=== PATIENT | female | born 1970 | race Caucasian/White ===

== ENCOUNTER 2019-11-25 16:58 | Outpatient (CLI) | payer BC, SELFPAY ==
[2019-11-25 17:31] LABS: Basophils Absolute Auto 0.1 K/mm3 (0.0-0.1); Basophils Percent Auto 1.1 % (0.2-1.2); Eosinophils Absolute Auto 0.2 K/mm3 (0-0.3); Eosinophils Percent Auto 1.5 % (0-4.4); Hematocrit 40.1 % (37.0-47.0); Hemoglobin 13.4 g/dL (12.0-15.0); Immature Granulocyte Absolute 0.05 K/mm3 (0.00-0.031); Immature Granulocyte Percent A 0.4 % (0-0.5); Lymphocytes Percent Auto 20.9 % (18.3-44.2); Mean Corpuscular HGB Conc 33.4 g/dl (32-36); Mean Corpuscular Hemoglobin 30.4 pg (26-34); Mean Corpuscular Volume 90.9 fl (80-100); Mean Platelet Volume 11.5 fl (7.4-10.4); Monocytes Absolute Auto 0.9 K/mm3 (0.1-0.6); Monocytes Percent Auto 7.2 % (2.6-8.5); Neutrophils Absolute Auto 8.9 K/mm3 (1.3-6.7); Neutrophils Percent Auto 68.9 % (45.5-73.1); Platelet Count Result 351 k/mm3 (150-375); Red Blood Count 4.41 M/mm3 (4.2-5.4); Red Cell Distribution Width 12.5 % (11.5-14.5); White Blood Count 12.9 K/mm3 (4.5-10.0)
[2019-11-25 17:44] LABS: Alanine Aminotransferase 20 U/L (4-35); Albumin Level 4.4 g/dL (3.5-5.1); Alkaline Phosphatase 83 U/L (38-126); Amylase 93 U/L (30-110); Aspartate Amino Transferase 22 U/L (14-36); Bilirubin,Total 0.2 mg/dL (0.2-1.3); Blood Urea Nitrogen 12 mg/dL (7-17); Calcium 9.1 mg/dL (8.4-10.2); Carbon Dioxide 20 mmol/L (22-30); Chloride 110 mmol/L (98-107); Estimated Glomerular Filt Rate > 60; Glucose 89 mg/dL (65-105); Lipase 118 U/L (23-300); Potassium 4.2 mmol/L (3.4-5.0); Sodium 139 mmol/L (137-145)
== END 2019-11-25 16:59 | disposition home or self-care (01) ==
PROVIDERS: PCP Family Medicine; Visit Provider Physician Assistant
DX: R10.9 Unspecified abdominal pain (principal); R11.10 Vomiting, unspecified; R19.7 Diarrhea, unspecified
CPT/HCPCS: 36415; 80053; 82150; 83690; 85025

== ENCOUNTER 2019-12-01 12:14 | Outpatient (CLI) | payer BC, SELFPAY ==
[2019-12-01 12:40] LABS: Basophils Absolute Auto 0.1 K/mm3 (0.0-0.1); Basophils Percent Auto 0.7 % (0.2-1.2); Eosinophils Absolute Auto 0.2 K/mm3 (0-0.3); Eosinophils Percent Auto 1.8 % (0-4.4); Hematocrit 40.1 % (37.0-47.0); Hemoglobin 13.3 g/dL (12.0-15.0); Immature Granulocyte Absolute 0.03 K/mm3 (0.00-0.031); Immature Granulocyte Percent A 0.3 % (0-0.5); Lymphocytes Absolute Auto 1.78 K/mm3 (0.9-3.2); Lymphocytes Percent Auto 18.3 % (18.3-44.2); Mean Corpuscular HGB Conc 33.2 g/dl (32-36); Mean Corpuscular Hemoglobin 30.2 pg (26-34); Mean Corpuscular Volume 91.1 fl (80-100); Monocytes Absolute Auto 0.7 K/mm3 (0.1-0.6); Monocytes Percent Auto 7.3 % (2.6-8.5); Neutrophils Percent Auto 71.6 % (45.5-73.1); Platelet Count Result 324 k/mm3 (150-375); Red Cell Distribution Width 12.6 % (11.5-14.5); White Blood Count 9.7 K/mm3 (4.5-10.0)
== END 2019-12-01 12:15 | disposition home or self-care (01) ==
PROVIDERS: PCP Family Medicine; Visit Provider Physician Assistant
DX: R19.7 Diarrhea, unspecified (principal); D72.829 Elevated white blood cell count, unspecified
CPT/HCPCS: 36415; 85025

== ENCOUNTER 2019-12-03 16:30 | Outpatient (CLI) | payer BC, SELFPAY ==
--- NOTE | ~2019-12-03 | US_ITS ---
EXAMINATION: US abdomen complete EXAM DATE: 12/03/2019 17:11 INDICATION: Epigastric pain and vomiting. TECHNIQUE: Multiple grayscale and Doppler images of the complete abdomen were obtained (by a technolo gist who performed the scan) and subsequently reviewed. Correlation is made to renal ultrasound 2016. FINDINGS: The abdominal aorta is normal in caliber. Visualized portion IVC is patent. The pancreatic head a nd body are normal in appearance. The pancreatic tail is not visualized. The liver has normal echogenicity and contour. There are no focal liver lesions identified. There is no evidence of intrahepatic biliary duct dilation. Portal venous flow was seen in the hepatopedal , normal direction and has normal Doppler waveform. Common bile duct measures 4 mm, which is normal. The gallbladder wall is normal in thickness, with ex pected amount of distention. No sonographic evidence of pericholecystic fluid. There is cholelithia sis. Technologist performing exam reports patient did not demonstrate sonographic Banegas's sign. P jeremi note that this sign is less reliable in patients who have received pain medication. Right kidney: There is normal contour and echogenicity. It measures 13.7 x 6.7 x 6.4 centimeters. There are no focal renal lesions identified. There is no hydronephrosis. Left kidney: In expected location of the left kidney there is region which could be a severely atroph ic kidney measuring 4.2 x 2.2 x 2.7 cm. On previous examination left kidney was identified measuring 7.3 x 3.6 x 3.8 cm. The spleen measures 9 centimeters and is morphologically normal. IMPRESSION: 1. Severe left renal atrophy. 2. Cholelithiasis. Reviewed, dictated and finalized at location A.
== END 2019-12-03 16:31 | disposition home or self-care (01) ==
PROVIDERS: PCP Family Medicine; Visit Provider Physician Assistant
DX: R11.10 Vomiting, unspecified (principal); R10.9 Unspecified abdominal pain; R19.7 Diarrhea, unspecified; N26.1 Atrophy of kidney (terminal); K80.20 Calculus of gallbladder without cholecystitis without obstruction
CPT/HCPCS: 76700

== ENCOUNTER → 2020-12-03 16:36 | Outpatient (CLI) | payer BC, SELFPAY ==
--- NOTE | ~2020-12-03 | MM_ITS ---
EXAMINATION: MM screening mario BI w fidencio HISTORY: Screening mammogram TECHNIQUE: Craniocaudal and mediolateral oblique 3-D tomosynthesis images were obtained and synthetic 2-D images were generated. CAD analysis was submitted and interpreted. COMPARISON: , 05/22/2017, 04/20/2016 bilateral digital screening mammogram examinations BREAST PARENCHYMAL COMPOSITION: There are scattered areas of fibroglandular density. FINDINGS: There is no evidence of suspicious mass, calcification, or architectural distortion to sugg est malignancy in either breast. There has been no suspicious interval change. IMPRESSION: 1. No mammographic evidence of malignancy. 2. Recommend routine screening mammography in one year. BI-RADS Category 1: Negative Reviewed, dictated and finalized at location A.
== END ==
PROVIDERS: Visit Provider Nurse Practitioner
DX: Z12.31 Encounter for screening mammogram for malignant neoplasm of breast (principal)
CPT/HCPCS: 77063; 77067

== ENCOUNTER → 2020-12-04 09:20 | Outpatient (CLI) | payer BC, SELFPAY ==
--- NOTE | ~2020-12-04 | MR_ITS ---
EXAMINATION: MR knee RT wo con DATE: 12/04/2020 10:10 INDICATION: Right knee pain. TECHNIQUE: Magnetic resonance imaging (MRI) of the right knee was performed without intravenous contr ast. Sequences included axial PD-weighted FS FSE, coronal PD-weighted FSE and PD-weighted FS FSE, sag ittal PD-weighted FSE, and sagittal T2-weighted FS FSE. COMPARISON: Right knee radiographs 11/18/2020 FINDINGS: Medial compartment: Medial meniscus is normal. There is cartilage surface irregularity of tibial condyle. There is shallo w partial-thickness cartilage loss of femoral condyle medially. Marginal osteophytes are noted. Lateral compartment: There is a complex tear of anterior horn, body, and posterior horn of lateral meniscus. There is exte nsive deep partial thickness cartilage loss of tibial condyle with mild subchondral edema-like marrow signal intensity. There is full-thickness cartilage loss of tibial condyle medially. There is full-t hickness cartilage loss of femoral condyle involving the central and posterior articular surface with mild subchondral edema-like marrow signal intensity. Marginal osteophytes are noted. Patellofemoral compartment: Patellar cartilage is normal. There is shallow partial-thickness cartilage loss involving central and lateral trochlea. There are tiny marginal osteophytes. Ligaments and tendons: The anterior and posterior cruciate ligaments are normal. Medial collateral ligament is normal. There are changes of prior sprain of fibular collateral ligament characterized by thickening and increased signal intensity. There is mild patellar tendinopathy. Fluid: There is a moderate-sized knee joint effusion. There is trace fluid in a Yoon's cyst. There is mild prepatellar and superficial infrapatellar bursitis. IMPRESSION: 1. Severe chondrosis of lateral compartment and mild chondrosis of medial and patellofemoral compartm ents. 2. Complex tear of lateral meniscus. 3. Moderate-sized knee joint effusion. Reviewed, dictated and finalized at location A. IMPRESSION: 1. Severe chondrosis of lateral compartment and mild chondrosis of medial and p atellofemoral compartments. 2. Complex tear of lateral meniscus. 3. Moderate-sized knee joint effusion.
== END ==
PROVIDERS: Visit Provider Nurse Practitioner Family
DX: M25.561 Pain in right knee (principal); M22.2X1 Patellofemoral disorders, right knee; S83.271A Complex tear of lateral meniscus, current injury, right knee, initial encounter; M25.461 Effusion, right knee
CPT/HCPCS: 73721

== ENCOUNTER → 2021-03-26 10:25 | Outpatient (CLI) | payer BC, SELFPAY ==
--- NOTE | ~2021-03-26 | US_ITS ---
EXAMINATION: US pelvic complete DATE: 03/26/2021 10:45 INDICATION: Abnormal uterine bleeding TECHNIQUE: Multiple transabdominal sonographic images of the pelvis were obtained. COMPARISON: None. FINDINGS: The uterus measures 9.4 x 3.2 x 4.0 cm. The endometrial complex measures 3 mm in thickness. The righ t ovary measures 2.4 x 1.3 x 2.1 cm. The left ovary measures 2.5 x 1.5 x 2.8 cm. Vascular flow identi fied in both ovaries on color Doppler. There is no free fluid in the pelvis. IMPRESSION: 1. Normal pelvic ultrasound. Reviewed, dictated and finalized at location A.
== END ==
PROVIDERS: Visit Provider Nurse Practitioner
DX: N93.8 Other specified abnormal uterine and vaginal bleeding (principal)
CPT/HCPCS: 76856

== ENCOUNTER → 2023-07-17 14:59 | Outpatient (CLI) | payer BC, SELFPAY ==
--- NOTE | ~2023-07-17 | MM_ITS ---
EXAMINATION: MM screening mario BI w fidencio HISTORY: Screening TECHNIQUE: Craniocaudal and mediolateral oblique 3-D tomosynthesis images were obtained and synthetic 2-D images were generated. CAD analysis was submitted and interpreted. COMPARISON: No prior mammogram is available for comparison at this institution. BREAST PARENCHYMAL COMPOSITION: There are scattered areas of fibroglandular density. FINDINGS: There is no evidence of suspicious mass, calcification, or architectural distortion to sugg est malignancy in either breast. There has been no suspicious interval change. IMPRESSION: 1. No mammographic evidence of malignancy. 2. Recommend routine screening mammography in one year. BI-RADS Category 1: Negative Reviewed, dictated and finalized at location A. [employer]
== END ==
PROVIDERS: PCP Nurse Practitioner; Visit Provider Nurse Practitioner
DX: Z12.31 Encounter for screening mammogram for malignant neoplasm of breast (principal)
CPT/HCPCS: 77063; 77067

== ENCOUNTER 2024-02-29 13:38 | Outpatient (CLI) | payer BC, SELFPAY ==
[2024-02-29 13:52] LABS: Basophils Absolute Auto 0.1 K/mm3 (0.0-0.1); Basophils Percent Auto 0.8 % (0.2-1.2); Eosinophils Absolute Auto 0.2 K/mm3 (0-0.3); Eosinophils Percent Auto 1.5 % (0-4.4); Hematocrit 42.6 % (37.0-47.0); Hemoglobin 14.2 g/dL (12.0-15.0); Immature Granulocyte Absolute 0.03 K/mm3 (0.00-0.031); Immature Granulocyte Percent A 0.3 % (0-0.5); Lymphocytes Absolute Auto 2.44 K/mm3 (0.9-3.2); Lymphocytes Percent Auto 23.3 % (18.3-44.2); Mean Corpuscular HGB Conc 33.3 g/dl (32-36); Mean Corpuscular Hemoglobin 30.4 pg (26-34); Mean Corpuscular Volume 91.2 fl (80-100); Monocytes Absolute Auto 0.8 K/mm3 (0.1-0.6); Monocytes Percent Auto 7.1 % (2.6-8.5); Platelet Count Result 331 k/mm3 (150-375); Red Blood Count 4.67 M/mm3 (4.2-5.4); Red Cell Distribution Width 12.2 % (11.5-14.5); White Blood Count 10.5 K/mm3 (4.5-10.0)
--- NOTE | 2024-02-29 13:52 | ECG_ITS ---
Test Date: 2024-02-29 13:57:57 Measurements Intervals Chase Rate: 84 P: 58 MS: 148 QRS: 0 QRSD: 91 T: 7 QT: 348 QTc: 412 Interpretive Statements SINUS RHYTHM WITH SINUS ARRHYTHMIA No previous ECG available for comparison Electronically Signed On 03-01-2024 14:28:10 CDT by Dion Galindo M.D.
[2024-02-29 14:01] LABS: Add Urine Microscopic? NO; Appearance Urine Clear (Clear); Bilirubin Urine Negative (Negative); Blood Urine Negative (Negative); Color Urine Yellow (Yellow); Glucose Urine UA Negative (Negative); Ketones Urine Negative (Negative); Leukocyte Esterase Ur Negative LEU/UL (Negative); Nitrate Urine Negative (Negative); Protein Urine Negative (Negative); Specific Grav Ur 1.034 (1.001-1.035)
[2024-02-29 14:04] LABS: Anion Gap 11 mmol/L (4-12); Blood Urea Nitrogen 19 mg/dL (7-17); Calcium 9.5 mg/dL (8.4-10.2); Carbon Dioxide 22 mmol/L (22-30); Chloride 106 mmol/L (98-107); Estimated Glomerular Filt Rate > 60; Glucose 99 mg/dL (65-110); Potassium 4.3 mmol/L (3.4-5.0); Sodium 139 mmol/L (137-145)
== END 2024-02-29 13:39 | disposition home or self-care (01) ==
LOC: ANHLAB 13:41
PROVIDERS: PCP Family Medicine; Visit Provider Nurse Practitioner Family
DX: K80.20 Calculus of gallbladder without cholecystitis without obstruction (principal); I49.8 Other specified cardiac arrhythmias; K21.9 Gastro-esophageal reflux disease without esophagitis; I10 Essential (primary) hypertension; E78.5 Hyperlipidemia, unspecified; R53.83 Other fatigue
CPT/HCPCS: 36415; 80048; 81003; 85025; 93005

== ENCOUNTER 2024-04-01 13:59 | Outpatient (CLI) | payer BC, SELFPAY ==
[2024-04-01 15:33] LABS: Albumin Level 4.2 g/dL (3.5-5.1)
[2024-04-01 15:35] LABS: Prothrombin Time 13.7 Seconds (11.1-14.7)
[2024-04-01 15:36] LABS: Partial Thromboplastin Time 30.4 Seconds (22.3-36.8)
[2024-04-01 15:49] LABS: Hemoglobin A1C 5.3 % (<5.7)
[2024-04-01 16:48] LABS: Urine Cotinine NEGATIVE
[2024-04-01 17:20] LABS: MRSA (PCR) DETECTED (NOT DETECTE)
== END 2024-04-01 14:00 | disposition home or self-care (01) ==
LOC: ANHSURGERY 14:05
PROVIDERS: PCP Family Medicine; Visit Provider Orthopaedic Surgery
DX: Z01.812 Encounter for preprocedural laboratory examination (principal); M17.11 Unilateral primary osteoarthritis, right knee
CPT/HCPCS: 80307; 82040; 83036; 85610; 85730; 87641

== ENCOUNTER 2024-04-15 00:35 | Day surgery (SDC) | payer BC, SELFPAY ==
--- NOTE | 2024-04-01 13:53 | PC.NURSE ---
Addendum entered by Yue Harrell RN 04/01/24 14:50: HOLD IBUPROFEN(NSAIDS 7 DAYS PRE-OP PER DR MACEDO- LAST DOSE 04/07/24. PT RELAYS UNDERSTANDING. Original Note: Report to the Outpatient Waiting Room, entrance under the green pavilion located off [facility], at time ___8:30AM____ on date ____04/15/24___. Planned Procedure Time: ____10:30AM____.? Time changes happen often and if your time is changed the preop area will call you the afternoon before. - You and your visitor will be asked to self-screen and do not enter if you have any COVID symptoms. Please call surgeon if you need to reschedule. - A mask is optional within the hospital at this time. Patients may have clear liquids (water, carbonated beverages, clear teas, apple juice) until 3 hours prior to surgery with a maximum of 20 ounces. - No food from midnight until time of surgery and no smoking. Take only the following medications with a SIP of water on the morning of surgery: ___BUSPIRONE. MAY TAKE ALPRAZOLAM NEEDED DO NOT STOP ANY OF YOUR OTHER PRESCRIPTION MEDICATIONS PRIOR TO SURGERY EXCEPT THE FOLLOWING Medications to discontinue per physician HOLD WEGOVY 10 DAYS PRE-OP PER ANESTHESIA Date to take last dose 04/04/24 Please no make-up, nail cypriot, hairspray, perfume, deodorant, or body powder the day of surgery.? No jewelry (including any body piercings) or valuables the day of surgery, leave them at home.? Please take a shower or bath the night before, or the morning of, surgery with an antibacterial soap.? Wear comfortable, loose fitting clothing.? - Jewelry must be removed prior to entering the operating room.? Rings and piercings that are not removed may be cut off. - The hospital will not accept responsibility for valuables.? - Please leave all valuables, including medications, at home the day of surgery. If you are going home after surgery, a licensed tour bus driver/guide must drive you home.? - NO public transportation without another adult if you receive anesthesia. - We recommend that an adult stay with you for 24 hours following discharge. - We also recommend that you do not drive, make important decision, drink alcoholic beverages, or take any drugs that were not prescribed by your health care provider for at least 24 hours after your discharge time. Follow any additional instructions given to you from your surgeon. [facility] Telephone instructions given to PATIENT Patient advised to call surgeon office or pre surgery nurse liaison [phone] if any additional questions.
[2024-04-01 14:18] VITALS: BP 137/71; PULSE 84; RESP 16; TEMP 36.5; O2SAT 99; BMI 37.7
--- NOTE | 2024-04-14 13:52 | WPDANESEPPF ---
Anes - Initial Pre Proc Eval Procedure: Operation Date: 04/15/24 10:30 Proposed Procedures p Right Total Knee Arthroplasty - Ander Sethi MD Date/Time: 04/14/24 13:52 Surgeon: Ander Sethi MD Pre Op Diagnosis: right knee OA Patient Data Age: 54 Gender: F Height: 1.66 m Weight: 103.7 kg Last Vital Signs Temp 36.5 C 04/01/24 14:18 Pulse 84 04/01/24 14:18 Resp 16 04/01/24 14:18 BP 137/71 04/01/24 14:18 Pulse Ox 99 04/01/24 14:18 O2 Del Method Room Air 04/01/24 14:18 Allergies Allergy/AdvReac Type Severity Reaction Status Date / Time No Known Allergies Allergy Verified 04/15/24 08:51 Home Medications Medication Instructions Recorded Confirmed Type escitalopram oxalate 5 mg tablet 5 mg PO DAILY #90 tabs 12/06/21 04/15/24 Rx semaglutide (weight loss) 2.4 2.4 mg (0.75 mL) subcut WEEKLY #9 08/15/23 04/15/24 Rx mg/0.75 mL subcutaneous pen mL injector omeprazole 40 mg capsule,delayed 40 mg PO DAILY #90 caps 11/14/23 04/15/24 Rx release losartan 100 mg tablet 100 mg PO DAILY #90 tabs 11/28/23 04/15/24 Rx alprazolam 0.25 mg tablet 0.25 mg PO DAILY PRN anxiety #30 02/22/24 04/15/24 Rx tabs buspirone 10 mg tablet 10 mg PO BID 02/22/24 04/15/24 History Lactobacillus acidophilus 10 10,000 mmu cells PO ONCE 04/01/24 04/15/24 History billion cell capsule (Probiotic) chlorhexidine gluconate 4 % 1 applic topical ONCE #237 mL 04/01/24 04/15/24 Rx topical liquid (Hibiclens) ibuprofen 200 mg tablet (Advil) 400 mg PO Q6H PRN Pain 04/01/24 04/15/24 History norethindrone 1 mg-ethinyl 1 tablet PO HS 04/01/24 04/15/24 History estradiol 35 mcg tablet (Nortrel) Patient hx anesthesia problems: post op nausea/vomiting Family hx anesthesia problems: none Results Review: All pre-operative results and documents have been reviewed as part of the pre-operative evaluation. [facility] Past Medical History Medical History (Updated 04/14/24 @ 13:52 by Ang Ventura DO) BMI greater than 40 Chondromalacia, right knee Claustrophobia Degenerative joint disease of knee Depression GERD (gastroesophageal reflux disease) History of diverticulitis HTN (hypertension) Impingement syndrome involving patellar fat pad Lateral meniscus tear Left renal atrophy Medial meniscus tear Other fatigue Right knee DJD Right knee pain Surgical History Surgical History History of bunionectomy 2009 Family History Family History Father Hypertension Mother Hypertension Sibling Hypertension Other Depression Heart disease Social History Social History Social History: Smoking status: Never smoker Second hand tobacco smoke exposure: No Alcohol intake: current Substance use: never Substance use type: does not use Living arrangements: with family Additional living arrangements comments: SPOUSE AND CHILD Occupation/Education: occupation Gender identity (if verbalized by the patient): Female Sexual Orientation (if Verbalized by the Patient): Straight or Heterosexual Spiritual care concerns: No Anes - Eval Final PreProcedure Day of Procedure 04/14/24 13:52 Patient weight: obese Heart: regular rate and rhythm Lungs: clear to auscultation Airway: Mallampati scale class II Neurological: alert and oriented Last oral intake: >/= 8 hours ASA classification: III Emergent: no Anesthetic plan: proceed Anesthesia type and monitoring: general LMA and standard monitoring Results Review: All pre-operative results and documents have been reviewed as part of the pre-operative evaluation. Informed Consent: The patient's anesthetic plan and its attendant risks and benefits were discussed with the patient/family/POA. Questions were solicited and answers provided to the satisfaction
[2024-04-15] VITALS (20 sets, daily range): BP systolic 137–180; BP diastolic 78–109; PULSE 68–103; RESP 15–24; TEMP 36.3–36.9; O2SAT 94–100
--- NOTE | ~2024-04-15 | XR_ITS ---
EXAMINATION: [id number] DATE: 04/15/2024 14:46 CDT INDICATION: Right knee arthroplasty TECHNIQUE: 2 views right knee FINDINGS: There is a right total knee arthroplasty in expected position. Subcutaneous gas with fluid and air in the joint and overlying skin sivakumar are consistent with recent surgery. No evidence of p eriprosthetic fracture. IMPRESSION: 1. Recent right total knee arthroplasty. Reviewed, dictated and finalized at location B.
--- NOTE | 2024-04-15 07:22 | WPDHPUPDATE1 ---
History and Physical Update Update Date/Time: 04/15/24 07:22 History and Physical has been reviewed, including an updated exam of the patient. There are NO changes in the patient's condition. Risks, benefits, and alternatives have been discussed and questions answered. Patient agrees to proceed with procedure.
[2024-04-15] MEDS: ACETAMINOPHEN 500 MG TABLET 1000 MG PO (09:16)
[2024-04-15] MEDS: LACTATED RINGERS 1,000 ML 30 ML IV CONT ×2 (09:27→13:43)
[2024-04-15] MEDS: TRANEXAMIC ACID 1,000MG/ISO100 1,000 MG/100 ML BAG 200 MG IVPB (10:30)
[2024-04-15] MEDS: SCOPOLAMINE 1 MG PATCH 1 PATCH TRANSDERM (10:37)
[2024-04-15] MEDS: ceFAZolin 2 GM/D5W 50 ML 2 GM/50 ML BAG IVPB ×2 (11:41→17:50)
--- NOTE | 2024-04-15 12:04 | WPDANESPNB ---
Anes - Peripheral Nerve Block Date/Time: 04/15/24 12:04 I have discussed with the patient/family/POA the placement of a peripheral nerve block for post-operative pain management, including associated risks, benefits, complications, and side effects. Alternative methods of post-operative analgesia were detailed. Questions were solicited and answers provided to the satisfaction of the patient/family/POA. Time-Out: A pre-procedural Time-Out was completed immediately before starting the procedure and confirmed: Patient Identification, Site, Procedure, Patient Position and the Availability of Requisite Equipment. Clinical Indications: Acute post-operative pain management requested by the operative surgeon. Nerve Block Insertion Note Anes-nerve block: adductor canal right Patient position: supine Skin prep: chlorhexidine Needle: 22 gauge, stimulating, insulated echogenic needle. Needle length: 80 mm Technique: ultrasound Injectate: bupivacaine 0.5% with epi 5 mcg/ml (30cc - no epi) Observations: tolerated well Complications: none Procedure start time:: 1119 Procedure end time:: 1121
[2024-04-15] MEDS: SODIUM CHLORIDE 0.9% IV 37.7 ML, MORPHINE SULFATE INJ (*CRX) 2 MG, ROPivacaine HCL 1% 2... INFILTRATE (12:07)
--- NOTE | 2024-04-15 13:49 | W.PM.PROC2 ---
Procedure Note - Detailed Date of Procedure 04/15/24 Pre-op Diagnosis right knee OA Post-op Diagnosis Same Procedure Performed R TKA Surgeon Ander Sethi MD Anesthesia General Description of Procedure THE RIGHT KNEE WAS PREPPED AND DRAPED IN THE STERILE FASHION. A MIDLINE SKIN INCISION WAS MADE. A MEDIAL PARAPATELLAR ARTHROTOMY WAS MADE. THE PATELLA WAS EVERTED. THERE WAS TRICOMPARTMENT DJD. THERE WAS MINIMAL PATELLA DJD. AN INTRAMEDULLARY CHEO WAS PLACED IN THE FEMUR. A DISTAL FEMORAL CUT WAS MADE IN 5 DEGREES OF VALGUS REMOVING APPROXIMATELY 9 MM OF BONE FROM THE DISTAL FEMUR. THE FEMUR WAS SIZED TO 4. A 4 FEMORAL CUTTING BLOCK WAS PLACED IN 3 DEGREES OF EXTERNAL ROTATION AND IN ALIGNMENT WITH NOEMI'S LINE AND THE TRANSEPICONDYLAR AXIS. ANTERIOR POSTERIOR AND CHAMFER CUTS WERE MADE. THE CUTS WERE EXCELLENT. NEXT AN INTRAMEDULLARY CUTTING GUIDE WAS PLACED IN THE TIBIA. A TRANS TIBIAL CUT WAS MADE ALONG THE LONG AXIS OF THE TIBIA. APPROXIMATELY 10 MM OF BONE WAS REMOVED FROM THE HIGH SIDE OF THE TIBIA. THE TIBIA WAS THEN PLANED TO A SMOOTH SURFACE. POSTERIOR FEMORAL OSTEOPHYTES WERE REMOVED FROM THE FEMORAL CONDYLES. A 4 TIBIAL TRIAL WAS PLACED IN ALIGNMENT WITH THE 1/3 MEDIAL ASPECT OF THE TIBIAL TUBERCLE. THEN A 4 FEMORAL TRIAL COMPONENT WAS PLACED. BOTH HAD EXCELLENT FITS. EVENTUALLY A 10 MM CS POLYETHYLENE TRIAL COMPONENT WAS PLACED. THE KNEE WAS TAKEN THROUGH A RANGE OF MOTION. THE KNEE CAME OUT TO FULL EXTENSION. THERE WAS NO ABNORMAL TILT TO THE PATELLA. THERE WAS GOOD A/P AND VARUS/VALGUS STABILITY. THERE WAS NO EXCESSIVE ROLL BACK WITH FLEXION. THE TRIAL COMPONENTS WERE REMOVED. THEN A BENTON 4 FEMORAL COMPONENT AND 4 TIBIAL COMPONENT WITH A 10 CS POLYETHYLENE COMPONENT WERE PRESS FIT INTO PLACE. ONCE THE CEMENT WAS HARD THE KNEE WAS TAKEN THROUGH A ROM AGAIN AND FOUND TO BE STABLE WITH NO PATELLA TILT NO EXCESSIVE ROLL BACK WITH FLEXION AND GOOD STABILITY WITH COMPLETE AND FULL EXTENSION. THE KNEE WAS IRRIGATED WITH STERILE BETADINE AND WATER FOR ABOUT 3 MINUTES. THE BLEEDERS WERE CAUTERIZED. THE ARTHROTOMY WAS REPAIRED WITH NUMBER 1 VICRYL. THE SUB CUTANEOUS LAYER WITH 2-0 VICRYL AND THE SKIN WITH DEBORAH. THE WOUND WAS WASHED AND A STERILE DRESSING WAS APPLIED. PATIENT WAS EXTUBATED. Estimated Blood Loss -150.0 Pathology None sent Complications No immediate complications Condition Stable Disposition PACU
[2024-04-15] MEDS: diphenhydrAMINE HCl INJ 50 MG/ML VIAL 25 MG IV PUSH (14:19)
[2024-04-15] MEDS: fentaNYL CITRATE INJ (*CRX) 100 MCG/2 ML VIAL 25 MCG IV PUSH ×4 (15:02→15:19)
[2024-04-15] MEDS: LABETALOL HCL INJ 100 MG/20 ML VIAL IV PUSH (15:31)
--- NOTE | 2024-04-15 16:28 | ADMGEN ---
This patient, Kayce Mantilla, was admitted to [facility] Surg Room 302-01. Patient/family oriented to hospital policies and general routines including ID bracelet, bed and alarms, visiting hours, pain management, procedures, bathroom and other care routines, personal items, smoking policy, room service/diet, and visiting hours. Information on how to activate the Rapid Response Team has been discussed. Patient/Family are encouraged to report perceived risks to care and to ask questions if they do not understand what they are told or what they should do.
[2024-04-15] MEDS: KETOROLAC 15 MG/ML VIAL (*BKC) IV PUSH ×3 (16:37→23:41)
[2024-04-15] MEDS: SODIUM CHLORIDE 0.9% IV 1,000 ML 125 ML IV CONT (16:37)
[2024-04-15] MEDS: SENNA/DOCUSATE SODIUM TABLET 2 TAB PO (16:41)
[2024-04-15] MEDS: busPIRone HCL 10 MG TABLET PO (16:41)
[2024-04-15 17:00] LABS: Glucose Point of Care 126 mg/dl (65-105)
[2024-04-15] MEDS: oxyCODONE/ACETAMINOPHEN (*CRX) 5-325 MG TABLET 1 TABLET PO (17:51)
[2024-04-15] MEDS: diazePAM (*CRX) 5 MG TABLET PO (20:32)
[2024-04-15] MEDS: ASPIRIN 325 MG ENTERIC TABLET PO (20:32)
[2024-04-16] MEDS: ceFAZolin 2 GM/D5W 50 ML 2 GM/50 ML BAG IVPB ×2 (01:24→11:06)
[2024-04-16 01:26] VITALS: BP 117/61; PULSE 84; RESP 20; TEMP 36.1; O2SAT 100
[2024-04-16] MEDS: KETOROLAC 15 MG/ML VIAL (*BKC) IV PUSH ×2 (05:04→12:06)
[2024-04-16 05:48] VITALS: BP 143/81; PULSE 110; RESP 22; TEMP 36.3; O2SAT 99
[2024-04-16] MEDS: oxyCODONE/ACETAMINOPHEN (*CRX) 5-325 MG TABLET 1 TABLET PO ×2 (05:49→16:25)
[2024-04-16 06:23] LABS: Hematocrit 34.7 % (37.0-47.0); Hemoglobin 11.4 g/dL (12.0-15.0); Mean Corpuscular HGB Conc 32.9 g/dl (32-36); Mean Corpuscular Hemoglobin 30.5 pg (26-34); Mean Corpuscular Volume 92.8 fl (80-100); Mean Platelet Volume 11.6 fl (7.4-10.4); Platelet Count Result 343 k/mm3 (150-375); Red Blood Count 3.74 M/mm3 (4.2-5.4); Red Cell Distribution Width 12.7 % (11.5-14.5); White Blood Count 22.1 K/mm3 (4.5-10.0)
[2024-04-16 06:38] LABS: Anion Gap 10 mmol/L (4-12); Blood Urea Nitrogen 12 mg/dL (7-17); Calcium 8.7 mg/dL (8.4-10.2); Carbon Dioxide 18 mmol/L (22-30); Chloride 110 mmol/L (98-107); Estimated CRCL calculation 77 ml/min; Estimated Glomerular Filt Rate > 60; Glucose 118 mg/dL (65-110); Potassium 3.6 mmol/L (3.4-5.0); Sodium 138 mmol/L (137-145)
[2024-04-16 07:03] LABS: Band Neutrophils Percent 2 % (0-6); Lymphocytes Absolute Manual 0.88 K/mm3 (1.1-4.5); Lymphocytes Percent Manual 4 % (18-44); Monocytes Absolute Manual 0.22 K/mm3 (0.1-0.90); Monocytes Percent Manual 1 % (3-9); Platelet Estimate Adequate (Adequate); Schistocytes None Seen; Total Cells Counted 100
[2024-04-16 07:32] VITALS: O2SAT 95
[2024-04-16 09:48] VITALS: BP 142/78; PULSE 86; RESP 16; TEMP 36.8; O2SAT 100
[2024-04-16] MEDS: ASPIRIN 325 MG ENTERIC TABLET PO (10:15)
[2024-04-16] MEDS: PANTOPRAZOLE 40 MG TABLET PO (10:15)
[2024-04-16] MEDS: busPIRone HCL 10 MG TABLET PO ×2 (10:15→16:26)
[2024-04-16] MEDS: ESCITALOPRAM OXALATE 5 MG TABLET PO (10:16)
[2024-04-16] MEDS: SENNA/DOCUSATE SODIUM TABLET 2 TAB PO ×2 (10:16→16:26)
[2024-04-16] MEDS: oxyCODONE/ACETAMINOPHEN (*CRX) 10-325 MG TABLET 1 TAB PO (10:16)
[2024-04-16] MEDS: LOSARTAN POTASSIUM 100 MG TABLET PO (10:16)
[2024-04-16] MEDS: ALPRAZolam (*CRX) 0.25 MG TABLET PO (10:44)
[2024-04-16 11:02] LABS: Neutrophils Percent Manual 93 % (46-73)
[2024-04-16 11:03] LABS: Neutrophils Absolute Manual 20.99 K/mm3 (1.7-7.2)
[2024-04-16 13:48] VITALS: BP 136/69; PULSE 91; RESP 16; TEMP 36.1; O2SAT 99
[2024-04-16] MEDS: diazePAM (*CRX) 5 MG TABLET PO (15:19)
--- NOTE | 2024-04-16 17:09 | PM.DS ---
DS: Admitting Diagnosis Discharge Date 04/16/24 Admitting Diagnosis RIGHT KNEE DJD DS: Discharge Diagnosis Discharge Diagnosis (1) S/P total knee arthroplasty: Code(s): Z96.659 - Presence of unspecified artificial knee joint Status: Acute Assessment and Plan: POD 1 DOING WELL OK TO DC HOME SHE WILL F/U IN 3 WEEKS DS: Summary Hospital Course Reason for hospitalization: R TKA Hospital Course: PATIENT WAS ADMITTED S/P TOTAL KNEE ARTHROPLASTY FOR POSTOPERATIVE MEDICAL MANAGEMENT, PAIN CONTROL AND MOBILIZATION WITH PHYSICAL AND OCCUPATIONAL THERAPY. THE PATIENT PROGRESSED WELL WITH PT/OT. LABS AND VITALS REMAINED STABLE AND PAIN WELL CONTROLLED. THE PATIENT HAS BEEN CLEARED TO BE DISCHARGED HOME. FOLLOW UP APPOINTMENT SCHEDULED. DISCHARGE INSTRUCTIONS DISCUSSED AT LENGTH WITH THE PATIENT. MEDICATIONS REVIEWED. Status at Discharge Cognitive/behavioral status at discharge: STABLE Time Spent with Patient Time attestation: Total time spent providing and/or coordinating discharge services: Exam Extrem: Other: VSS AFEBRILE DRESSING DRY NV INTACT NEG HOMANS SIGN, CALF AND THIGH SOFT NON TENDER DS: Data Data Completed and Pending Labs on day of discharge: Labs from last 24 hours 04/16/24 05:15 WBC 22.1 H RBC 3.74 L Hgb 11.4 L Hct 34.7 L MCV 92.8 MCH 30.5 MCHC 32.9 RDW 12.7 Plt Count 343 MPV 11.6 H Immature Gran % (Auto) Not Reportable Neut % (Auto) Not Reportable Lymph % (Auto) Not Reportable Reagan % (Auto) Not Reportable Eos % (Auto) Not Reportable Baso % (Auto) Not Reportable Lymph # (Auto) Not Reportable Reagan # (Auto) Not Reportable Eos # (Auto) Not Reportable Baso # (Auto) Not Reportable Abs Immat Gran (auto) Not Reportable Absolute Neuts (auto) Not Reportable Absolute Nucleated RBC Not Reportable Total Counted 100 Neutrophils % (Manual) 93 H Band Neutrophils % 2 Lymphocytes % (Manual) 4 L Monocytes % (Manual) 1 L Nucleated RBC % Not Reportable Abs Neuts (Manual) 20.99 H Abs Lymphs (Manual) 0.88 L Abs Monocytes (Manual) 0.22 Platelet Estimate Adequate Schistocytes None seen Sodium 138 Potassium 3.6 Chloride 110 H Carbon Dioxide 18 L Anion Gap 10 BUN 12 D Creatinine 0.90 Estim Creat Clear Calc 77 Estimated GFR > 60 Glucose 118 H Calcium 8.7 Procedures/Treatments: RIGHT TKA Discharge Plan Discharge Patient Disposition: Home Health Service Discharge Instructions: Post Op Total Knee Replacement Instructions Dr. Ander Sethi [phone] Your dressing will be changed prior to your discharge. You will be sent home with one additional dressing to be changed on post op day 7 by the home health RN. Your sivakumar will be removed on the 14th day after surgery and steri-strips will be placed. Please practice good hand hygiene and do not touch your incision in order to prevent infection. You may shower with your dressing but do not submerge in a bath tub. Do not drive or operate machinery until you are released by Dr. Sethi. Do not walk without a walker for any reason until you are released by Dr. Sethi. Continue to use your ice machine. Please use a towel or pillow case to protect your skin before applying your ice machine. Do NOT place a pillow under your knee. You may use a pillow from the calf down if needed. This will prevent a flexion contracture postoperatively. CPM: You may begin use of your CPM machine at home if you have been given one pre-operatively. DO NOT USE WHILE YOU ARE SLEEPING. [employer]: If you were given a [employer] Portable Connect System preoperatively, you are to begin use on the day you arrive home postoperatively. Our goal is for you to use the machine 5 times per day. The sessions are very short in the beginning and will progress as you progress. We are able to monitor your progress from afar as well as your pain and other reported symptoms. If you have difficulties with the machine, please call [phone]
[2024-04-16 17:25] VITALS: TEMP 36.1
== END 2024-04-16 18:40 | disposition home health service (06) ==
LOC: ANHSURGERY 08:29 → ANH3MEDSUR 16:11
PROVIDERS: PCP Family Medicine; Visit Provider Orthopaedic Surgery
PROC: (CPT 27447; principal; 2024-04-15 10:30)
DX: M17.11 Unilateral primary osteoarthritis, right knee (principal); M25.761 Osteophyte, right knee; G89.18 Other acute postprocedural pain; F32.A Depression, unspecified; I10 Essential (primary) hypertension; K21.9 Gastro-esophageal reflux disease without esophagitis; E66.9 Obesity, unspecified; Z68.37 Body mass index [BMI] 37.0-37.9, adult; Z79.85 Long-term (current) use of injectable non-insulin antidiabetic drugs; Z79.1 Long term (current) use of non-steroidal anti-inflammatories (NSAID); Z98.890 Other specified postprocedural states; Z87.19 Personal history of other diseases of the digestive system; Z82.49 Family history of ischemic heart disease and other diseases of the circulatory system
CPT/HCPCS: 64447; 27447; 36415; 73560; 80048; 82948; 85025; 86850; 86900; 86901; 97110; 97116; 97161; 97165; 97530; 97535; A9270; C1713; C1776; J0171; J0690; J1100; J1171; J1200; J1885; J2003; J2250; J2270; J2590; J2704; J2795; J3010; J7030; J7120